=== PATIENT | male | born 1930 | race Caucasian/White ===

== ENCOUNTER 2017-04-08 14:20 | Emergency (ER) | payer MEDICARE ==
[~2017-04-08] VITALS: Ht 185.4 cm; Wt 81.0 kg
[2017-04-08 14:26] VITALS: BP 109/67; PULSE 72; RESP 16; TEMP 97.4; O2SAT 96
[2017-04-08] MEDS ORDERED: SPIR25TA PO (14:49)
[2017-04-08] MEDS ORDERED: MULTTAB67 PO (14:49)
[2017-04-08] MEDS ORDERED: POTA99TA4 (14:49)
[2017-04-08] MEDS ORDERED: CHOL1TAB42 (14:49)
[2017-04-08] MEDS ORDERED: ASPI81CH CHEW (14:49)
[2017-04-08] MEDS ORDERED: AMIO0.1T PO (14:49)
[2017-04-08] MEDS ORDERED: LEVO175T2 PO (14:49)
[2017-04-08] MEDS ORDERED: FURO1TAB60 PO (14:49)
--- NOTE | 2017-04-08 14:52 | PD ---
HPI Chief Complaint: Head Injury Time Seen by Provider: 14:38 Travel History International Travel<30 days: No Contact w/Intl Traveler<30days: No Traveled to known affect area: No History of Present Illness HPI 86-year-old male here by private vehicle with his for evaluation of head injury after mechanical trip and fall. The patient was out on his porch when he states that he tripped/lost his balance and had an unwitnessed fall about 30 minutes prior to arrival. He struck his head against the railing. He denies LOC. He is not complaining of head pain and right hip pain. He denies any other injuries. He was able to ambulate after the fall. He takes 81 mg of aspirin daily. No other antiplatelets or anticoagulants. No fevers or recent illness. No chest pain or dyspnea. PFSH Past Medical History Hx Anticoagulant Therapy: Yes (BABY ASA DAILY) Atrial Fibrillation: Yes Autoimmune Disease: No Blood Disorders: No Heart Rhythm Problems: Yes Cancer: Yes (SKIN CANCER REMOVED FROM RIGHT ALEVISM) Cardiovascular Problems: Yes (A. FIB, DEFIBRILATOR) Chemotherapy: No Congestive Heart Failure: Yes Diabetes: No Endocrine: No Gastrointestinal Disorders: No Genitourinary: Yes Musculoskeletal: Yes Neurologic: No Psychiatric: No Respiratory: Yes (TB 47 years ago ) Radiation Therapy: No Tetanus Vaccination: > 5 Years Past Surgical History Abdominal Surgery: Yes (hernia) Cardiac Surgery: Yes (ablation- cardiac surgery for a-fib, pacer-defibrillator) Eye Surgery: Yes (bilateral cataracts) Social History Alcohol Use: Yes (WINE ON OCCASION) Tobacco Use: No Substance Use: No Allergies-Medications (Allergen,Severity, Reaction): Coded Allergies: Nubain (Verified Allergy, Mild, PASSED OUT, 04/08/17) Reported Meds & Prescriptions Reported Meds & Active Scripts Active Reported Vitamin D-3 (Cholecalciferol) 2,000 Unit Tab Potassium 99 Mg Tablet Multiple Vitamin 1 Tab 1 Tab PO DAILY Aspirin 81 Mg Chew 81 Mg CHEW DAILY Levothyroxine (Levothyroxine Sodium) 175 Mcg Tab 175 Mcg PO DAILY Lasix (Furosemide) 40 Mg Tab 40 Mg PO DAILY Spironolactone 25 Mg Tab 25 Mg PO DAILY Amiodarone (Amiodarone HCl) 100 Mg Tab 100 Mg PO DAILY Review of Systems Except as stated in HPI: all other systems reviewed are Neg Physical Exam Narrative GENERAL: Well-developed, well-nourished, awake, alert, GCS 15 SKIN: Focused skin assessment warm/dry. Superior scalp with superficial abrasion with underlying hematoma, no visible contaminants. HEAD: Small superior scalp hematoma. Normocephalic. EYES: Pupils equal and round. No scleral icterus. No injection or drainage. ENT: Mucous membranes pink and moist. NECK: Trachea midline. No JVD. No midline cervical spine step-off or tenderness. CARDIOVASCULAR: Regular rate and rhythm. No murmur appreciated. RESPIRATORY: No accessory muscle use. Clear to auscultation. Breath sounds equal bilaterally. GASTROINTESTINAL: Abdomen soft, non-tender, nondistended. MUSCULOSKELETAL: No obvious deformities. No clubbing. No cyanosis. No edema. Pelvis is stable. Mild right hip tenderness. Normal range of motion and muscle strength in bilateral lower extremities. NEUROLOGICAL: Awake and alert. No obvious cranial nerve deficits. Motor grossly within normal limits. Normal speech. PSYCHIATRIC: Appropriate mood and affect; insight and judgment normal. Data Data Last Documented VS Vital Signs Date Time Temp Pulse Resp B/P Pulse Ox O2 Delivery O2 Flow Rate FiO2 04/08/17 16:48 68 16 110/79 99 04/08/17 14:[address] Brain W/O Iv Contrast(Rout) (04/08/17 ) Ct Cerv Spine W/O Contrast (04/08/17 ) Hip, Uni(Ap&Lat) W Ap Pelvis (04/08/17 ) Tetanus/Diphtheria Tox Adult (Tetanus/Di (04/08/17 15:30) Ct Pelvis W/O Iv Contrast (04/08/17 ) [facility] Medical Decision Making Medical Screen Exam Complete: Yes Emergency Medical Condition: Yes Differential Diagnosis Intracranial trauma, cervical spine injury, right hip fracture versus contusion Narrative Course Vital signs reviewed and are within normal limits. CT head: Cerebral atrophy, no acute intracranial abnormality. CT cervical spine: Diffuse degenerative changes without acute bony abnormality. Pelvis x-ray: CONCLUSION: 1. The hip joints and proximal femurs appear intact. 2. Questionable lucency seen at the medial inferior pubic rami on the right. A subtle fracture cannot obviously be excluded. This area could be further evaluated with CT examination of the pelvis. CT pelvis: CONCLUSION: No fracture is present. Patient and the patient's family were made aware of all findings. Scalp abrasion irrigated. Patient wants to be discharged home. He is stable for discharge home with outpatient follow-up with his primary care physician this week. Both the patient and the patient's were informed on when to return to the emergency department. They verbalized understanding and agreement with plan. Diagnosis Primary Impression: Closed head injury Qualified Code: S09.90XA - Closed head injury, initial encounter Additional Impressions: Fall Qualified Code: W19.XXXA - Fall, initial encounter Scalp abrasion Qualified Code: S00.01XA - Scalp abrasion, initial encounter Referrals: Primary Care Physician 3 days Additional Instructions: Follow-up with your primary care physician as scheduled. Return to the emergency department for worsening symptoms or any other concerns as discussed. Disposition: 01 DISCHARGE HOME Condition: Stable Gregorio Palencia MD Apr 08, 2017 14:52
--- NOTE | 2017-04-08 15:18 | RADHPO ---
EXAM DATE/TIME: 04/08/2017 14:57 [facility] COMPARISON: No previous studies available for comparison. INDICATIONS : Fell and hit head. RADIATION DOSE: 57.91 CTDIvol (mGy) MEDICAL HISTORY : Cardiovascular disease. Anticoagulant therapy. SURGICAL HISTORY : Pacemaker. Bilateral cataracts. ENCOUNTER: Initial ACUITY: 1 day PAIN SCALE: 3/10 LOCATION: cranial TECHNIQUE: Multiple contiguous axial images were obtained of the head. Using automated exposure control and adj ustment of the mA and/or kV according to patient size, radiation dose was kept as low as reasonably a chievable to obtain optimal diagnostic quality images. FINDINGS: There is marked central and cortical atrophy with dilatation of ventricular and sulcal spaces. There is no parenchymal hemorrhage, acute infarction or mass lesion identified. There are no extra-axial f luid collections appreciated. The posterior fossa is unremarkable with midline fourth ventricle. Th e portion of the orbits and paranasal sinuses visualized are unremarkable. CONCLUSION: Cerebral atrophy. No acute intracranial abnormality. Tashi Mehta MD on April 08, 2017 at 15:14 Board Certified Radiologist. This report was verified electronically.
[2017-04-08] MEDS ORDERED: TETANUS/DIPHTHERIA TOXOID ADULT 0.5 ML VIAL IM ONE (15:30)
--- NOTE | 2017-04-08 16:16 | RADHPO ---
EXAM DATE/TIME: 04/08/2017 14:49 [facility] COMPARISON: No previous studies available for comparison. INDICATIONS : Right hip pain post fall. MEDICAL HISTORY : A-fib. TB. Prostate problems. SURGICAL HISTORY : Pacemaker. Hernia repair. Back surgery. Cardiac ablation. ENCOUNTER: Initial ACUITY: 1 day PAIN SCORE: 7/10 LOCATION: Right hip/pelvis FINDINGS: The proximal femurs appear intact. The hip joints are normally aligned. On one view, there is a sub tle lucency seen at the medial aspect of the inferior pubic rami on the right. A subtle fracture can not be excluded. It is not clearly seen on the other views. There does appear to be an area of susp ected calcification projecting over the mid portion of the inferior pubic rami on the right. The pat ient does have a penile prosthesis in place. There is degenerative change in the lower lumbar spine. CONCLUSION: 1. The hip joints and proximal femurs appear intact. 2. Questionable lucency seen at the medial inferior pubic rami on the right. A subtle fracture wilmer ot obviously be excluded. This area could be further evaluated with CT examination of the pelvis. Ramiro Faust MD on April 08, 2017 at 15:25 Board Certified Radiologist. This report was verified electronically.
--- NOTE | 2017-04-08 16:36 | RADHPO ---
EXAM DATE/TIME: 04/08/2017 14:57 [facility] COMPARISON: No previous studies available for comparison. INDICATIONS : Fell and hit head. RADIATION DOSE: 26.79 CTDIvol (mGy) MEDICAL HISTORY : Cardiovascular disease. Anticoagulant therapy. SURGICAL HISTORY : Pacemaker. Bilateral cataracts. ENCOUNTER: Initial ACUITY: 1 day PAIN SCALE: 2/10 LOCATION: Neck TECHNIQUE: Volumetric scanning of the cervical spine was performed. Multiplanar reconstructions in the sagittal, coronal and oblique axial planes were performed. Using automated exposure control and adjustment o f the mA and/or kV according to patient size, radiation dose was kept as low as reasonably achievable to obtain optimal diagnostic quality images. FINDINGS: The craniovertebral junction is intact. The C1 ring is intact. The C1-C2 articulation is aligned. There is hypertrophic change seen posterior to the dens at the C1-C2 articulation causing a impressio n on the anterior thecal sac. The dens is intact. The cervical vertebral bodies are normal in heigh t. There is minimal 1-2 mm of anterior subluxation of C4 on C5, minimal posterior subluxation of C6 on C7 and minimal anterior subluxation of C7 on T1. All of these are in the order of 1-2 mm and thou ght to be secondary to degenerative change. C2-C3: Disc space is narrowed. There is posterior osteophytic ridging. Significant narrowing of the thecal sac is not seen. There is uncovertebral hypertrophy. The uncovertebral hypertrophy causes minimal impressions on the neural foramina. C3-C4: Disc space is narrowed. There is diffuse disc osteophyte complex seen posteriorly causing a mild imp ression on the anterior aspect of the thecal sac. There is uncovertebral and facet hypertrophy being worse on the left. There is narrowing of the left neural foramina. The right neural foramina appea rs patent. C4-C5: Again noted is the anterior subluxation of C4 on C5. The disc space is narrowed. Significant impres j luis on the thecal sac is not seen. There is facet and uncovertebral hypertrophy. The facet hypertr ophy is asymmetric being worse on the right. There is some narrowing of the neural foramina bilatera lly being worse on the right. C5-C6: Disc space is narrowed, no significant impression on the thecal sac is not clearly appreciated. Ther e is facet and uncovertebral hypertrophy. The facet hypertrophy is asymmetric and worse on the left. There is mild narrowing of the left neural foramina. The right neural foramina is grossly patent. C6-C7: Disc space is narrowed, there is diffuse posterior osteophytic ridging causing at least a mild impres j luis on the thecal sac. There is uncovertebral hypertrophy. The uncovertebral hypertrophy does cont ribute to some neural foraminal narrowing being worse on the right. The facet joints demonstrate mil d degenerative change. C7-T1: The posterior disc margin is grossly intact. Again noted is the anterior subluxation of C7 on T1. T here is bilateral moderate facet hypertrophy. CONCLUSION: Degenerative changes throughout the cervical spine as described above. An acute bony abnormality is not seen. Ramiro Faust MD on April 08, 2017 at 16:08 Board Certified Radiologist. This report was verified electronically.
[2017-04-08 16:48] VITALS: BP 110/79; PULSE 68; RESP 16; O2SAT 99
--- NOTE | 2017-04-08 17:05 | RADHPO ---
EXAM DATE/TIME: 04/08/2017 16:19 [facility] COMPARISON: HIP RIGHT (AP&LAT 2/3VWS) W AP PELVIS, April 08, 2017, 14:49. INDICATIONS : Abnormal hip xray. Right hip pain. Fall. ORAL CONTRAST: No oral contrast ingested. RADIATION DOSE: 30.39 CTDIvol (mGy) MEDICAL HISTORY : Cardiovascular disease. SURGICAL HISTORY : Pacemaker. ENCOUNTER: Initial ACUITY: 1 day PAIN SCALE: 4/10 LOCATION: Right pelvis TECHNIQUE: Volumetric scanning of the pelvis was performed. Using automated exposure control and adjustment of the mA and/or kV according to patient size, radiation dose was kept as low as reasonably achievable t o obtain optimal diagnostic quality images. FINDINGS: BOWEL/MESENTERY: The visualized small and large bowel demonstrate no acute abnormality. There is no free fluid. BLADDER: There is no wall thickening or mass. RETROPERITONEUM: There is no aneurysm or lymphadenopathy. REPRODUCTIVE: There is a penile prosthesis in place. There appears to be a TURP defect in the upper prostate. INGUINAL: There is no lymphadenopathy or hernia. MUSCULOSKELETAL: No fracture seen. There is degenerative change in the lower lumbar spine. There is anterior subluxati on of L4 on L5. There is calcification of the pubic symphysis. There is some cystic change at the sup erior right acetabular region. CONCLUSION: No fracture is present. Ramiro Faust MD on April 08, 2017 at 17:00 Board Certified Radiologist. This report was verified electronically.
== END 2017-04-08 17:29 | disposition home or self-care (01) ==
LOC: PHED 14:20
DX: S00.01XA Abrasion of scalp, initial encounter (principal); S09.90XA Unspecified injury of head, initial encounter; Z79.01 Long term (current) use of anticoagulants; I48.91 Unspecified atrial fibrillation; I50.9 Heart failure, unspecified; Z23 Encounter for immunization; W01.0XXA Fall on same level from slipping, tripping and stumbling without subsequent striking against object, initial encounter; Y93.9 Activity, unspecified; Y92.9 Unspecified place or not applicable; Y99.8 Other external cause status
CPT/HCPCS: 70450; 72125; 72192; 73502; 90471; 90714